=== PATIENT | male | born 1960 | race African-American/Black ===

== ENCOUNTER 2019-09-11 15:54 | Emergency (ER) | payer OTHER, SELFPAY ==
[2019-09-11 16:00] VITALS: BP 152/101; PULSE 68; RESP 16; TEMP 37.3; O2SAT 99; BMI 21.3
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
[2019-09-11 17:36] VITALS: BP 152/101; PULSE 68; RESP 16; TEMP 37.3; O2SAT 99
[2019-10-11 13:21] LABS: POC Glucose,Bedside 150 (70-110)
== END 2019-09-11 17:39 | disposition home or self-care (01) ==
PROVIDERS: Emergency Provider Emergency Medicine
DX: S16.1XXA Strain of muscle, fascia and tendon at neck level, initial encounter (principal); V43.52XA Car driver injured in collision with other type car in traffic accident, initial encounter; Y92.415 Exit ramp or entrance ramp of street or highway as the place of occurrence of the external cause
CPT/HCPCS: 72040; 82962; 96372; 99281; 99282